=== PATIENT | male | born 1945 | race Caucasian/White ===

== ENCOUNTER → 2016-04-02 | Outpatient (REF) | payer MEDICARE | END | disposition home or self-care (01) | LOC: M LAB REF 11:58 | PROVIDERS: ATTEND Internal Medicine | DX: E78.00 Pure hypercholesterolemia, unspecified (principal) ==

== ENCOUNTER → 2016-11-14 | Outpatient (REF) | payer MEDICARE | LOC: M LAB REF 14:48 | PROVIDERS: ATTEND Podiatrist | DX: E11.621 Type 2 diabetes mellitus with foot ulcer (principal) ==

== ENCOUNTER → 2017-12-09 | Outpatient (REF) | payer MEDICARE | LOC: M LAB REF 14:22 | DX: L03.90 Cellulitis, unspecified (principal) | CPT/HCPCS: 87186 ==

== ENCOUNTER → 2018-01-20 | Outpatient (REF) | payer MEDICARE | LOC: M LAB REF 13:56 | DX: L03.031 Cellulitis of right toe (principal) | CPT/HCPCS: 87186 ==

== ENCOUNTER → 2018-06-22 | Outpatient (CLI) | payer MEDICARE ==
--- NOTE | 2018-06-22 19:09 | REP ---
LUMBOSACRAL SPINE: Six views of the lumbosacral spine performed. COMPARISON: 02/10/2014 Once again there is anterior spondylolisthesis of L5 on S1 which appears essentially stable. Otherwise, the lumbar vertebral bodies are normal in height and well aligned. There is moderate diffuse spurring. There is mild disc space narrowing and subchondral sclerosis at virtually all levels with moderate disc space narrowing at L5-S1. There is sclerosis and spurring at the posterior facet joints diffusely. Posterior elements appear intact. IMPRESSION: Essentially stable arthritic changes most significantly at the L5-S1 level. There is stable anterior grade 1 spondylolisthesis of L5 on S1. Electronically Signed by Justin Khalil MD 06/23/2018 04:51 P
== END ==
LOC: M WUC 16:48
PROVIDERS: ATTEND Internal Medicine
DX: M43.17 Spondylolisthesis, lumbosacral region (principal)

== ENCOUNTER → 2018-11-30 | Outpatient (CLI) | payer MEDICARE, OTHER ==
--- NOTE | 2018-11-30 15:14 | REP ---
RIGHT HIP, TWO VIEWS: Two views of the right hip are performed. No acute fracture or dislocation is seen. There is severe joint space narrowing with subchondral sclerosis, cystic change and large acetabular spurs. There is mild spurring of the femoral head. Two metallic screws are seen in the acetabulum. Multiple metallic clips are seen in the region of the prostate. IMPRESSION: Severe arthritic changes. Two metallic screws in the posterior acetabulum. Electronically Signed by Justin Khalil MD 12/01/2018 04:15 P
== END ==
LOC: M ADAMS 13:14
PROVIDERS: ATTEND Nurse Practitioner Adult Health
DX: M16.11 Unilateral primary osteoarthritis, right hip (principal)

== ENCOUNTER → 2020-09-18 | Outpatient (CLI) | payer MEDICARE, OTHER ==
--- NOTE | 2020-09-18 10:42 | REP ---
INDICATION: ABDOMINAL DISTENSION. COMPARISON: None. FINDINGS: Supine and upright views of the abdomen show the intestinal gas pattern to be nonspecific. Gas and stool is seen throughout the colon within the rectosigmoid region. The organ silhouettes insofar as delineated appear unremarkable. There is a subtle right mid abdominal calcification The accompanying single frontal view of the chest shows no free subdiaphragmatic air, cardiomegaly, infiltrates or effusions. IMPRESSION: Possible cholelithiasis. Consider follow-up with ultrasound. <Electronically signed by Froilan Ann > 09/18/20 [id number]
== END ==
LOC: M WUC 09:30
PROVIDERS: ATTEND Physician Assistant
DX: R14.0 Abdominal distension (gaseous) (principal)

== ENCOUNTER → 2020-11-22 | Outpatient (CLI) | payer MEDICARE ==
--- NOTE | 2020-11-22 14:20 | REP ---
INDICATION: PVD. COMPARISON: None. TECHNIQUE: Bilateral lower extremity arterial Doppler ultrasound. FINDINGS: Ankle brachial indices are measured at 0.77 on the right and 0.97 on the left. Moderate plaquing is seen in the arterial tree bilaterally. Monophasic arterial Doppler waveforms are noted in the right lower extremity at and distal to the mid SFA. At the mid SFA there is a 2.6 2 1 velocity ratio stenosis on the right. The mid to distal posterior tibial artery on the left is occluded with revascularize flow at the ankle. Flow is reversed in the distal posterior tibial artery on the left. Left lower extremity arterial Doppler velocity chart: Left BEAUTY C[employer]URE TEACHER PSV 70 cm/S Profundal 86 Proximal SFA 75 Mid SFA 66 Distal SFA 107 Popliteal 45 Proximal FEI 48 Tibial-peroneal trunk 58 Proximal GOLF BALL MARKER 53 Distal GOLF BALL MARKER occluded revascularize flow Distal FEI 69 Right lower extremity arterial Doppler velocity chart: Right BEAUT[employer]URE TEACHER PSV 78 cm/S Profundal 79 Proximal SFA 80 Mid SFA 69/179 Distal SFA 71 Popliteal 78 Proximal FEI 96 Tibial-peroneal trunk 79 Proximal GOLF BALL MARKER 84 Distal GOLF BALL MARKER 28 Distal FEI 25 IMPRESSION: Moderate atherosclerotic plaquing as above. Mild mid SFA stenosis on the right and distal occlusion of the posterior tibial artery on the left with revascularization. <Electronically signed by Rigoberto Sebastian > 11/22/20 [id number]
== END ==
LOC: M RAD 12:20
PROVIDERS: ATTEND Podiatrist Foot & Ankle Surgery
DX: I73.9 Peripheral vascular disease, unspecified (principal)

== ENCOUNTER → 2020-11-27 | Outpatient (POV) | payer MEDICARE ==
[~2020-11-27] VITALS: Ht 180.3 cm; Wt 100.0 kg
[2020-11-27 14:00] VITALS: BP 130/70
--- NOTE | 2020-11-29 14:36 | IRCOV ---
[facility] IR Consult Office Visit IR Consult Office Visit DATE: Nov 27, 2020 REASON FOR CONSULTATION/CHIEF COMPLAINT: Right lower extremity ulcer. HISTORY OF PRESENT ILLNESS: 75-year-old male, diabetic, non-smoker with hypertension and hyperlipidemia, complaining of a nonhealing, right lower extremity, third toe ulcer. He states his ulcer has been present for several months and is not healing. He denies any pain. He denies intermittent claudication or rest pain. He denies prior cold leg, arterial thrombosis, gangrene or amputations. He denies prior lower extremity bypass or surgery. He denies chest pain, shortness of breath, orthopnea or paroxysmal nocturnal dyspnea. He does describe a DVT 6 years ago for which he was treated with anticoagulation. He is now on aspirin x2. ALLERGIES: Please see below. HOME MEDICATIONS: Please see below. PAST MEDICAL HISTORY: Diabetes Prior DVT Hypertension Hyperlipidemia PAST SURGICAL HISTORY: No prior right lower extremity intervention. FAMILY HISTORY: Noncontributory. SOCIAL HISTORY: Non-smoker. Denies alcohol or drugs. REVIEW OF SYSTEMS: Otherwise negative. PHYSICAL EXAMINATION: VITAL SIGNS: Please see below. GENERAL APPEARANCE: Appears well. Comfortable at rest. HEENT: No scleral icterus. RESPIRATORY: Normal breathing at rest. CARDIOVASCULAR: Normal rate. ABDOMEN: Nontender. EXTREMITIES: Right lower extremity: Ulceration of the third toe. No edema. Right lower extremity warm to touch. [place] in color. DP negative PT negative motor 5 out of 5 sensation intact Left lower extremity: No edema. No ulcers. No gangrene. DP 1+ PT negative motor 5 out of 5 sensation intact. NEUROLOGICAL: Alert and oriented. PSYCHIATRIC: Appropriate to circumstance. LABORATORY DATA: None recent Imaging: I personally reviewed the ultrasound bilateral lower extremity, performed 11/22/2020. There is atherosclerotic disease with stenosis in the mid right SFA. ASSESSMENT/PLAN: 75-year-old male with nonhealing right lower extremity ulcer associated with atherosclerotic disease and SFA stenosis on arterial ultrasound. I agree patient would benefit from angiography and/or intervention in the same setting if possible. We discussed the risks and benefits of the procedure and patient is willing to proceed. We have scheduled the patient for right lower extremity angiography and intervention.. I spent 30 minutes reviewing patient's records, imaging and in consultation with the patient. Thank you for this referral. CC Dr. Tay Lewis Allergies Coded Allergies: MS - Ezetimibe (Verified Allergy, Unknown, 09/14/13) MS - Lidocaine (Verified Allergy, Unknown, 09/14/13) MS - Pravastatin (Verified Allergy, Unknown, 09/14/13) MS - Procaine (Verified Allergy, Unknown, 09/14/13) MS - Rabeprazole (Verified Allergy, Unknown, 09/14/13) MS - Simvastatin (Verified Allergy, Unknown, 09/14/13) VS, I&O, 24H, Fishbone Vital Signs/I&O Vital Signs Date Time Temp Pulse Resp B/P (MAP) Pulse Ox O2 Delivery O2 Flow Rate FiO2 11/27/20 14:00 97.2 78 18 130/70 (90) 97 Room Air SID FOSTER MD Nov 29, 2020 14:36
== END ==
LOC: M IRPOV 13:52
PROVIDERS: ATTEND Radiology Diagnostic Radiology
DX: L97.519 Non-pressure chronic ulcer of other part of right foot with unspecified severity (principal); E11.621 Type 2 diabetes mellitus with foot ulcer; I10 Essential (primary) hypertension; E78.5 Hyperlipidemia, unspecified; Z86.718 Personal history of other venous thrombosis and embolism

== ENCOUNTER → 2020-12-20 | Outpatient (CLI) | payer MEDICARE ==
[~2020-12-20] MED LIST: ACET-683 PO; ACETAMINOPHEN 325 MG TAB As Ordered ONE; ACETAMINOPHEN 325 MG TAB PO ONE; ACETAMINOPHEN TAB 650MG DOSE (2X325MG) PO ONE; ASPI81CH33 PO; FLOM0.4C39 PO; ISOVUE-300 61% 50ML VIAL As Ordered ONE; MELO10CA2 PO; MIDAZOLAM INJ 2MG/2ML VIAL (J2250 PER 1MG) As Ordered ONE; NS 1,000 ML IV SCH; ONDANSETRON 4MG/2ML VIAL As Ordered ONE; diphenhydrAMINE 50MG/ML VIAL (J1200) As Ordered ONE; fentaNYL 100 MCG/2 ML INJECTION (J3010) As Ordered ONE
[2020-12-20 09:34] LABS: HEMATOCRIT 46.4 % (42.0-52.0); HEMOGLOBIN 15.6 g/dl (13.5-17.5); MEAN CORPUSCULAR HEMOGLOBIN 28.9 pg (27.0-33.0); MEAN CORPUSCULAR HGB CONC 33.6 g/dl (32.0-36.5); MEAN CORPUSCULAR VOLUME 86.1 fl (80.0-96.0); PLATELET COUNT, AUTOMATED 195 10^3/uL (150-450); RED BLOOD COUNT 5.39 10^6/uL (4.30-6.10); WHITE BLOOD COUNT 5.7 10^3/uL (4.0-10.0)
--- NOTE | 2020-12-20 09:43 | IRHP ---
[facility] IR Pre-Procedure H & P General Date of Service: Dec 20, 2020 Procedure: Same Day Surgery Interval History and Physical I have seen the patient and reviewed last H & P performed within 30 days. There is no significant interval change. History of Present Illness Chief Complaint The patient is a 75-year-old male admitted with a reason for visit of PAD. PRE-PROCEDURE DIAGNOSIS: PAD HEART: Normal rate. LUNGS: Normal breathing at rest. ASA Classification ASA Classification: III-Severe systemic dis. Mallampati Score: II NPO: Yes Problems with prior sedation: No Obstructive Sleep Apnea: No Plan moderate sedation Allergies Coded Allergies: MS - Ezetimibe (Verified Allergy, Unknown, 09/14/13) MS - Lidocaine (Verified Allergy, Unknown, 09/14/13) MS - Pravastatin (Verified Allergy, Unknown, 09/14/13) MS - Procaine (Verified Allergy, Unknown, 09/14/13) MS - Rabeprazole (Verified Allergy, Unknown, 09/14/13) MS - Simvastatin (Verified Allergy, Unknown, 09/14/13) Home Medications Scheduled Aspirin (Aspirin), 2 TAB PO DAILY, (Reported) Meloxicam, Submicronized (Meloxicam), 15 MG PO QHS, (Reported) Tamsulosin HCl (Flomax), 0.4 MG PO QHS, (Reported) VS, I&O, 24H, Fishbone Laboratory Data 24H LABS Laboratory Tests 2 12/20/20 09:19: Nucleated Red Blood Cells % (auto) 0.0 CBC/BMP Laboratory Tests 12/20/20 09:19 SID FOSTER MD Dec 20, 2020 09:43
[2020-12-20 10:05] LABS: BLOOD UREA NITROGEN 18 MG/DL (7-18); CARBON DIOXIDE LEVEL 27 MEQ/L (21-32); CHLORIDE LEVEL 108 MEQ/L (98-107); CREATININE FOR GFR 1.09 MG/DL (0.70-1.30); GLOMERULAR FILTRATION RATE > 60.0 (>42); GLUCOSE, FASTING 157 MG/DL (70-100); POTASSIUM SERUM 4.3 MEQ/L (3.5-5.1); SODIUM LEVEL 138 MEQ/L (136-145)
--- NOTE | 2020-12-20 13:52 | IRPON ---
IR Postoperative Note Date Of Procedure: Dec 20, 2020 Time Of Procedure: 13:39 IR Postoperative Note IR Right leg angiogram IR Right below-knee runoff arteriogram. IR Moderate sedation. Clinical Information:Right lower extremity nonhealing wound. Physician: Dr. Prajapati. Procedure: The patient was advised of the benefits, risks, and alternatives of the procedure and informed consent was obtained. A time out was performed with verification of the patient's name, MRN, site of procedure, and type of procedure to be performed. The patient was positioned in the supine position on the angiographic table. The site was prepped and draped in the usual sterile fashion. Moderate sedation was performed by the physician including the presence of an independent trained RN, who assisted in monitoring the patient's level of consciousness and physiological status. Following the administration of fentanyl and Versed, the physician spent 60 minutes of continuous [id number] time with the patient. A substation design draftsperson radiograph reveals hardware in the right hip. Subcutaneous diluted Benadryl was used for local anesthesia. The left common femoral artery was accessed, under fluoroscopy guidance with a microintroducer set. A short 0.018" [place] wire was inserted and the needle was exchanged for a 4 Fr microintroducer sheath. The guidewire and dilator were removed and a 0.035" wire was advanced under fluoroscopy guidance, into the abdominal aorta. A 6 Fr sheath was placed over the wire. An Omni Flush catheter was advanced over the wire, under fluoroscopy guidance and used to catheterize the infrarenal abdominal aorta. A pelvic arteriogram was performed and this demonstrates patent infrarenal abdominal aorta, patent bilateral common iliac, internal iliac and external iliac arteries. Severe tortuosity of the iliac arteries. A wire was advanced through the diagnostic catheter and used under fluoroscopy guidance, to gain up and over access into the right external iliac artery. The catheter was removed over the wire. A glide cath was advanced over the w miguel, under fluoroscopy guidance and used to catheterize the right common femoral artery. Right leg angiogram was performed. This demonstrates patent right common femoral artery, superficial femoral artery and profunda femoris. The superficial femoral artery is diffusely irregular with atherosclerotic disease. Angiography further down the right leg was performed and this demonstrates the mid and distal SFA remain patent with diffuse atherosclerotic disease and patent popliteal artery. A below-knee runoff arteriogram was performed, which demonstrates occlusion of the right anterior tibial artery. Hypertrophied and patent right peroneal artery. Multifocal stenosis in the right posterior tibial artery, which continues into the right foot. The peroneal artery travels to the ankle where it bifurcates and reconstitutes the dorsalis pedis. The anterior tibial artery remains occluded in its entirety. There is a vascular blush at the first hallux ulcer. Catheter, wire and sheath were removed, a Mynx device was used to close the groin arteriotomy. Pressure held and hemostasis achieved. A sterile dressing was applied to the site. The patient tolerated the procedure well and was returned to the PRU in stable condition. EBL: < 5 mL. Complications:None. Impression: 1. Right leg angiogram demonstrates diffuse atherosclerotic disease but patent common iliac, external iliac, internal iliac, SFA, profunda and popliteal artery. 2.. Below-knee runoff arteriogram demonstrates occluded right anterior tibial artery and multifocal stenosis in the posterior tibial artery. 3. Due to severe tortuosity of pelvic vasculature, any attempt at below-knee right lower extremity intervention will require antegrade, ipsilateral approach. Patient will be brought back for right lower extremity antegrade ipsilateral below-knee tibial recanalization and intervention. Thank you for this referral SID PRAJAPATI MD Dec 20, 2020 13:52
[2020-12-20 14:30] VITALS: BP 134/70
== END ==
LOC: M IRPRO 08:54
PROVIDERS: ATTEND Radiology Diagnostic Radiology
DX: I70.238 Atherosclerosis of native arteries of right leg with ulceration of other part of lower leg (principal); L97.519 Non-pressure chronic ulcer of other part of right foot with unspecified severity; E11.51 Type 2 diabetes mellitus with diabetic peripheral angiopathy without gangrene; Z79.82 Long term (current) use of aspirin; Z88.4 Allergy status to anesthetic agent; Z88.8 Allergy status to other drugs, medicaments and biological substances
CPT/HCPCS: 36246; 75630; 75774; 80048; 85027; 99152; 99153; C1760; C1769; C1887; C1894; G0269; J1200; J2250; J2405; J3010; Q9967

== ENCOUNTER → 2020-12-27 | Outpatient (CLI) | payer MEDICARE ==
[~2020-12-27] MED LIST changes: -ACETAMINOPHEN 325 MG TAB As Ordered ONE; -ACETAMINOPHEN 325 MG TAB PO ONE; -ACETAMINOPHEN TAB 650MG DOSE (2X325MG) PO ONE; +LIDOCAINE 1% MDV 20ML VIAL As Ordered ONE; +NITROGLYCERIN IN D5W 25MG/250ML (100MCG/ML) As Ordered ONE; +ONDANSETRON 4MG/2ML VIAL IV PRN; +PERCOCET 5MG/325MG TAB PO PRN; +PROMETHAZINE INJ 25 MG/ML VIAL (J2550) As Ordered ONE
--- NOTE | 2020-12-27 13:47 | IRPON ---
IR Postoperative Note Date Of Procedure: Dec 27, 2020 Time Of Procedure: 13:34 IR Postoperative Note IR Right leg angiogram IR Right below-knee runoff arteriogram. IR Ultrasound-guided right common femoral artery access. IR Right posterior tibial artery recanalization. IR Right posterior tibial artery angioplasty. IR Moderate sedation. Clinical Information:Right lower extremity nonhealing wound. Physician: Dr. Prajapati. Procedure: The patient was advised of the benefits, risks, and alternatives of the procedure and informed consent was obtained. A time out was performed with verification of the patient's name, MRN, site of procedure, and type of procedure to be performed. The patient was positioned in the supine position on the angiographic table. The site was prepped and draped in the usual sterile fashion. Moderate sedation was performed by the physician, including the presence of an independent trained RN, who assisted in monitoring the patient's level of consciousness and physiological status. Following the administration of fentanyl and Versed, the physician spent 90 minutes of continuous [id number] time with the patient. Ultrasound of the right groin demonstrates patent right common femoral artery. Benadryl was used for local anesthesia. The right common femoral artery was accessed antegrade, under ultrasound guidance with a microintroducer set. A short 0.018" [place] wire was inserted under fluoroscopy guidance and the needle was exchanged for a 4 Fr microintroducer sheath. The guidewire and dilator were removed and a 0.035" [place] wire was advanced under fluoroscopy guidance, and positioned in the distal superficial femoral artery. A 6 Fr sheath was placed over the wire. A right leg angiogram was performed through the groin sheath. This demonstrates extensive calcification of the proximal, mid and distal superficial femoral artery with irregularity. Patent popliteal artery. Below-knee runoff arteriogram was performed and this demonstrates patent tibioperoneal trunk. Complete occlusion of the proximal, mid and distal anterior tibial artery. Hypertrophied peroneal artery supply to the ankle. Posterior tibial artery with multifocal greater than 90% stenosis. A glide cath in conjunction with a Glidewire, was used under fluoroscopy guidance, to catheterize the distal posterior tibial artery. An angiogram of the right foot was performed from this location, which demonstrates antegrade flow from the distal posterior tibial artery, supplying calcaneal and plantar branches. Retrograde reconstitution of the hypertrophied peroneal artery branches and reconstitution of dorsalis pedis. The catheter was removed over the wire. A 3 x 200 mm [place] angioplasty balloon was advanced over the wire, under fluoroscopy guidance and positioned in the proximal and mid peroneal artery. Angioplasty was performed. Heparin was administered. The balloon was deflated. A post angioplasty follow-up arteriogram was performed, which demonstrates persistent multifocal stenosis in the posterior tibial artery. The angioplasty balloon was used under fluoroscopy guidance for repeat angioplasty of the posterior tibial artery. The balloon was deflated and removed over the wire. The catheter was readvanced over the wire, under fluoroscopy guidance and positioned in the popliteal artery. The catheter in conjunction with a wire, was used under fluoroscopy guidance, to try to recanalize the occluded anterior tibial artery. This was not possible. A completion angiogram was performed through the catheter located in the popliteal artery. This demonstrates improved flow and resolution of multifocal stenosis in the posterior tibial artery with improved flow to the right foot. Further completion angiography to the right foot was performed and this demonstrates faster flow to the right foot. No distal emboli, vessel injury or cut off post intervention. Preserved flow in the hypertrophied peroneal artery and its branches. Catheter, wire and sheath were removed, pressure held and hemostasis achieved. A sterile dressing was applied to the site. The patient tolerated the procedure well and was returned to the PRU in stable condition. EBL: < 5 mL. Complications:None. Impression: 1. Right leg angiogram demonstrates multifocal greater than 90% stenosis in the posterior tibial artery. Complete occlusion of the anterior tibial artery. Hypertrophied peroneal artery. 2. Unsuccessful recanalization of right anterior tibial artery. 3. Successful angioplasty of right posterior tibial artery with improved flow to the right foot. Thank you for this referral. CC SID Sarabia MD Dec 27, 2020 13:47
[2020-12-27 17:40] VITALS: BP 140/69
== END ==
LOC: M IRPRO 09:05
PROVIDERS: ATTEND Radiology Diagnostic Radiology
DX: I70.239 Atherosclerosis of native arteries of right leg with ulceration of unspecified site (principal); L97.919 Non-pressure chronic ulcer of unspecified part of right lower leg with unspecified severity; I70.92 Chronic total occlusion of artery of the extremities
CPT/HCPCS: 37228; 75710; 75774; 99152; 99153; C1725; C1769; C1887; C1894; J1200; J1644; J2250; J2405; J3010; Q9967

== ENCOUNTER → 2021-01-22 | Outpatient (POV) | payer MEDICARE ==
[~2021-01-22] VITALS: Ht 180.3 cm; Wt 101.3 kg
[~2021-01-22] MED LIST changes: -ISOVUE-300 61% 50ML VIAL As Ordered ONE; -LIDOCAINE 1% MDV 20ML VIAL As Ordered ONE; -MIDAZOLAM INJ 2MG/2ML VIAL (J2250 PER 1MG) As Ordered ONE; -NITROGLYCERIN IN D5W 25MG/250ML (100MCG/ML) As Ordered ONE; -NS 1,000 ML IV SCH; -ONDANSETRON 4MG/2ML VIAL As Ordered ONE; -ONDANSETRON 4MG/2ML VIAL IV PRN; -PERCOCET 5MG/325MG TAB PO PRN; -PROMETHAZINE INJ 25 MG/ML VIAL (J2550) As Ordered ONE; -diphenhydrAMINE 50MG/ML VIAL (J1200) As Ordered ONE; -fentaNYL 100 MCG/2 ML INJECTION (J3010) As Ordered ONE
[2021-01-22 11:10] VITALS: BP 160/80
== END ==
LOC: M IRPOV 11:06
PROVIDERS: ATTEND Radiology Diagnostic Radiology
DX: Z48.812 Encounter for surgical aftercare following surgery on the circulatory system (principal)

== ENCOUNTER → 2021-05-30 | Outpatient (CLI) | payer MEDICARE | LOC: M RAD 14:09 | PROVIDERS: ATTEND Internal Medicine | DX: M54.2 Cervicalgia (principal); M25.512 Pain in left shoulder ==

== ENCOUNTER → 2021-06-25 | Outpatient (POV) | payer MEDICARE ==
[~2021-06-25] VITALS: Ht 180.3 cm; Wt 102.7 kg
[2021-06-25 10:50] VITALS: BP 132/80
== END ==
LOC: M IRPOV 10:46
PROVIDERS: ATTEND Radiology Diagnostic Radiology
DX: I70.201 Unspecified atherosclerosis of native arteries of extremities, right leg (principal); Z79.01 Long term (current) use of anticoagulants; Z88.6 Allergy status to analgesic agent; Z88.8 Allergy status to other drugs, medicaments and biological substances

== ENCOUNTER → 2022-07-07 | Outpatient (REF) | payer MEDICARE ==
[2022-07-07 12:39] LABS: BLOOD UREA NITROGEN 22 MG/DL (9-23); CALCIUM LEVEL 10.2 MG/DL (8.3-10.6); CARBON DIOXIDE LEVEL 28 MMOL/L (20-31); CHLORIDE LEVEL 105 MMOL/L (98-107); CREATININE FOR GFR 1.15 MG/DL (0.70-1.30); GLOMERULAR FILTRATION RATE > 60.0 (>42); GLUCOSE, FASTING 133 MG/DL (74-106); POTASSIUM SERUM 5.3 MMOL/L (3.5-5.1); SODIUM LEVEL 137 MMOL/L (136-145)
== END ==
LOC: M LAB REF 12:09
PROVIDERS: ATTEND Student in an Organized Health Care Education/Training Program
DX: U07.1 COVID-19 (principal)

== ENCOUNTER → 2023-09-17 | Outpatient (CLI) | payer MEDICARE | LOC: M WUC 08:05 | PROVIDERS: ATTEND Internal Medicine | DX: R06.02 Shortness of breath (principal) ==

== ENCOUNTER → 2024-02-01 | Outpatient (REF) | payer MEDICARE | LOC: M LAB REF 12:20 | PROVIDERS: ATTEND Nurse Practitioner Family | DX: L02.415 Cutaneous abscess of right lower limb (principal) ==

== ENCOUNTER → 2024-04-26 | Outpatient (REF) | payer MEDICARE ==
[2024-04-26 15:44] LABS: FOLATE 10.5 NG/ML (>5.4)
== END ==
LOC: M LAB REF 12:27
PROVIDERS: ATTEND Physician Assistant Medical
DX: N18.31 Chronic kidney disease, stage 3a (principal)

== ENCOUNTER → 2024-10-04 | Outpatient (REF) | payer MEDICARE ==
[~2024-10-04] MED LIST changes: -FLOM0.4C39 PO; +TAMS-18 PO
== END ==
LOC: M LAB REF 12:16
PROVIDERS: ATTEND Internal Medicine
DX: E83.52 Hypercalcemia (principal)